=== PATIENT | female | born 1935 | race Caucasian/White ===

== ENCOUNTER 2017-08-20 07:37 | Outpatient (CLI) | payer MEDICARE ==
--- NOTE | 2017-08-20 12:50 | CT ---
CT OF THE ABDOMEN WITH AND WITHOUT IV CONTRAST: Date: 08/20/17 COMPARISON: None. HISTORY: Generalized abdominal discomfort. TECHNIQUE: Serial axial CT imaging is obtained at 5 mm intervals through the abdomen with oral contrast, with an d without IV contrast. The pelvis is not imaged on this exam. Coronal and sagittal reformatted imagin g obtained. FINDINGS: There is prominent calcification in the region of the mitral annulus. There is trace pericardial flui d. Linear atelectatic change/scar noted within medial lower lobes bilaterally. There is a small focal area of hypodensity involving the anterior aspect of the left lobe of the live r adjacent to the falciform ligament, a location typical for focal fatty infiltration. The liver appe ars grossly unremarkable otherwise. The gallbladder and spleen appear grossly unremarkable as well. There is a degree of pancreatic fatty atrophy. Adrenal glands and kidneys appear grossly unremarkable. Imaged bowel is unremarkable, but only partially imaged as the pelvis was not included on this exam. There is significant scattered atherosclerotic calcification involving the abdominal aorta and its br anches. No lymphadenopathy is seen in the abdomen. The imaged osseous structures demonstrate no acute findings. There is a sclerotic focus within the anterior inferior aspect of the L4 vertebral body me asuring 1.0 cm. This sclerotic lesion likely represents a benign bone island in the absence of known malignancy. IMPRESSION: Numerous incidental findings. No acute findings are seen within the abdomen. POS: [facility]
== END 2017-08-20 07:38 | disposition home or self-care (01) ==
LOC: SCSCT 07:37
PROVIDERS: ATTEND Nurse Practitioner Family
DX: R10.9 Unspecified abdominal pain (principal)
CPT/HCPCS: 74170

== ENCOUNTER 2017-11-23 09:31 | Outpatient (CLI) | payer MEDICARE ==
--- NOTE | 2017-11-23 11:50 | RAD ---
RIGHT LOWER LEG 2 VIEWS: Date: 11/23/17 HISTORY: Fall. Right leg injury. FINDINGS: Tibia and fibular are intact. Osseous structures are demineralized. Vascular and dystrophic calcifica tions overlie the soft tissues. IMPRESSION: 1. No acute osseous abnormalities are demonstrated. 2. Osteoporosis. POS: [facility]
--- NOTE | 2017-11-23 11:56 | RAD ---
LUMBAR SPINE 2 VIEWS: HISTORY: Fall. Low back injury. FINDINGS: There are 5 lumbar-type vertebrae. Pedicles are intact. Vertebral body heights and alignment are ma intained. Osteophytosis is present throughout the facets. Oval calcification projecting over the in ferior aspect of the L4 vertebral body on the lateral view is not well visualized on the frontal view and may represent extrinsic artifact or bowel content. There is calcification in the arterial struc tures. IMPRESSION: 1. Mild lumbar spondylosis. No evidence of compression fracture. 2. Atherosclerosis. POS: [facility]
== END 2017-11-23 09:32 | disposition home or self-care (01) ==
LOC: SCSRAD 09:31
PROVIDERS: ATTEND Specialist
DX: M76.41 Tibial collateral bursitis [Pellegrini-Stieda], right leg (principal); M47.896 Other spondylosis, lumbar region; I70.90 Unspecified atherosclerosis; M81.0 Age-related osteoporosis without current pathological fracture
CPT/HCPCS: 72100

== ENCOUNTER 2018-02-20 11:12 | Outpatient (CLI) | payer MEDICARE ==
--- NOTE | 2018-02-20 12:13 | RAD ---
RIGHT FOOT THREE VIEWS: History: Rheumatoid arthritis. Foot pain. FINDINGS: The bones are very demineralized. Hallus valgus deformity of the great toe are noted and subluxation which is most pronounced at the metatarsal phalangeal joints of the third and fourth toe are seen wit h some erosive changes of the metatarsal heads which would be compatible with history of rheumatoid a rthritis. Vascular calcifications are also noted. IMPRESSION: 1. Diffuse bony demineralization. Subluxation and erosions at the metatarsal phalangeal joints could be an indication of rheumatoid. 2. Old second metatarsal fracture incidentally noted. POS: [facility]
== END 2018-02-20 11:13 | disposition home or self-care (01) ==
LOC: SCSRAD 11:12
PROVIDERS: ATTEND Podiatrist
DX: S92.309A Fracture of unspecified metatarsal bone(s), unspecified foot, initial encounter for closed fracture (principal); S93.149A Subluxation of metatarsophalangeal joint of unspecified toe(s), initial encounter; M85.871 Other specified disorders of bone density and structure, right ankle and foot

== ENCOUNTER 2019-04-19 09:36 | Emergency (ER) | payer MEDICARE ==
--- NOTE | 2019-04-19 11:15 | RAD ---
PA AND LATERAL CHEST XRAY: HISTORY: Right rib pain. COMPARISON: 06/24/2015. FINDINGS: Cardiac silhouette is at the upper limits of normal in size. Pulmonary vasculature is within normal limits. There is prominent calcification of the mitral valve annulus. Lungs are clear. Vascular ca lcifications are seen in the thoracic aorta with degenerative changes again noted in the spine. No o ther interval change. IMPRESSION: No acute cardiopulmonary process. POS: [facility]
== END 2019-04-19 10:50 | disposition home or self-care (01) ==
LOC: SCSER 09:36
DX: M54.6 Pain in thoracic spine (principal); M54.5 Low back pain; M06.9 Rheumatoid arthritis, unspecified; J44.9 Chronic obstructive pulmonary disease, unspecified; E03.9 Hypothyroidism, unspecified; Z79.899 Other long term (current) drug therapy
CPT/HCPCS: 71046

== ENCOUNTER 2019-05-22 12:55 | Outpatient (CLI) | payer MEDICARE ==
--- NOTE | 2019-05-22 15:12 | CT ---
PET CT WITHOUT CONTRAST: HISTORY: Vertigo. COMPARISON: None. FINDINGS: No parenchymal hemorrhage. No extraaxial hematoma. No midline shift. Age-appropriate atrophy. Cortical savage-white matter differentiation is preserved. No hydrocephalus. Calvarium is intact. Adequate aeration of sinuses and mastoid air cells. There are presumed chronic changes at the articulation of C1 and C2, incompletely evaluated. Nonemer gent cervical spine CT is recommended. IMPRESSION: 1. No acute intracranial process. 2. Incidental findings in the upper cervical spine, incompletely evaluated. Dedicated cervical spin e CT is recommended. CODE T POS: [facility]
== END 2019-05-22 12:56 | disposition home or self-care (01) ==
LOC: SCSCT 12:55
PROVIDERS: ATTEND Physician Assistant
DX: R42 Dizziness and giddiness (principal)
CPT/HCPCS: 70450